=== PATIENT | male | born 1925 | race Caucasian/White ===

== ENCOUNTER 2016-12-07 12:50 | Outpatient (CLI) | payer MEDICARE ==
[~2016-12-07 12:50] MED LIST: FERROUS SULFAT324 M1 PO; MIRALAX EQUIVAL17 GM PO; PATIENT'S OWN MEDICA OP; SENOKOT8.6 MG PO; VICODIN EQUIVAL1 TAB PO
--- NOTE | 2016-12-07 13:23 | DIAGNOSTIC IMAGING REPORT ---
PROCEDURE: US VENOUS - LEFT EXT INDICATION: LEFT LEG EDEMA TECHNIQUE: Duplex sonography of the deep venous system in the left lower extremity was performed. Compression and augmentation techniques were used. COMPARISON: None. FINDINGS: Each interrogated segment of deep vein from the common femoral vein into the calf veins demonstrates normal compressibility, augmentation and/or color Doppler flow without filling defect. There is a 4 cm Gonzales's cyst. IMPRESSION: 1. No deep venous thrombosis in the left lower extremity.
== END 2016-12-07 23:00 ==
LOC: US SRH 12:50
DX: R60.9 Edema, unspecified (principal)